=== PATIENT | female | born 1985 | race Hispanic/Latino ===

== ENCOUNTER 2017-12-08 20:21 | Inpatient (IN) | payer BC, OTHER, SELFPAY ==
[~2017-12-08] VITALS: Ht 157.5 cm; Wt 68.2 kg
[2017-12-08 00:30] VITALS: BP 109/61
[2017-12-08] MEDS ORDERED: KETOROLAC TROMETHAMINE 30MG/ML ONE (20:51)
[2017-12-08] MEDS ORDERED: ONDANSETRON HCL 4 MG/2 ML VIAL ONE (20:51)
[2017-12-08] MEDS ORDERED: SODIUM CHLORIDE 0.9% 1000ML 1,000 ML IV ONE ×2 (20:51→23:45)
[2017-12-08] MEDS ORDERED: ONDANSETRON ODT 4 MG TAB ONE (20:52)
[2017-12-08 21:01] LABS: BILIRUBIN,URINE Negative (NEGATIVE); COLOR,URINE Yellow (YELLOW); GLUCOSE, URINE (UA) Negative (NEGATIVE); KETONES,URINE Negative (NEGATIVE); LEUKOCYTE ESTERASE ,URINE Large (NEGATIVE); NITRATE,URINE Positive (NEGATIVE); OCCULT BLOOD,URINE Large (NEGATIVE); PH,URINE 6.5 (5.0-8.0); PROTEIN,URINE 300 (NEGATIVE); UROBILINOGEN,URINE 0.2 mg/dL (0.2-1.0)
[2017-12-08 21:05] LABS: APPEARANCE,URINE CLOUDY (CLEAR)
[2017-12-08 21:07] LABS: HCG,QUAL RESULT NEGATIVE (NEGATIVE)
[2017-12-08 21:14] LABS: CREATININE 0.8 mg/dL (0.5-1.5); POTASSIUM 3.1 mmol/L (3.5-5.1)
[2017-12-08 21:18] LABS: ALBUMIN 3.8 g/dL (3.5-5.0); TOTAL PROTEIN, SERUM 7.9 g/dL (6.0-8.3)
[2017-12-08] MEDS ORDERED: IOPAMIDOL-370 75 ML VIAL IV ONE (21:18)
[2017-12-08] MEDS ORDERED: POTASSIUM BICARB/CIT AC 25 MEQ TABLET.EFF ONE (21:35)
[2017-12-08 21:42] LABS: BACTERIA,URINE Few /HPF (None Seen); RBC,URINE 26-50 /HPF (0-1); WBC,URINE 51-100 /HPF (0-1)
[2017-12-08 21:43] LABS: SQUAMOUS EPITHELIAL CELL,UR Rare /LPF (0-2)
[2017-12-08 22:01] LABS: BASOPHILS % (AUTO) 0.2 % (0.0-5.0); EOSINOPHILS % (AUTO) 0.7 % (0.0-8.0); HEMATOCRIT 35.7 % (36-48); MEAN CORPUSCULAR HEMOGLOBIN 33.9 pg (27.0-33.0); MEAN CORPUSCULAR HGB CONC 35.1 g/dL (32.0-36.0); MEAN CORPUSCULAR VOLUME 96.5 fL (79-99); MONOCYTES % (AUTO) 6.7 % (3.0-13.0); NEUTROPHILS % (AUTO) 78.4 % (40.0-77.0); PLATELET COUNT (AUTO) 210 K/uL (130-400); RED CELL DISTRIBUTION WIDTH 13.3 % (11.0-15.5); WHITE BLOOD COUNT (AUTO) 12.2 K/uL (4.8-10.8)
[2017-12-08] MEDS ORDERED: CEFTRIAXONE SODIUM 1 GM ONE (22:36)
[2017-12-08] MEDS ORDERED: MORPHINE SULFATE 2 MG/ML 1ML SYG IVP PRN (23:45)
[2017-12-08] MEDS ORDERED: MORPHINE SULFATE 2 MG/ML 1ML SYG ONE (23:45)
[2017-12-08] MEDS ORDERED: SODIUM CHLORIDE 0.9% 1000ML 1,000 ML IV SCH (23:45)
[2017-12-08] MEDS ORDERED: FAMOTIDINE/PF 20 MG/2 ML VIAL IV ONE (23:46)
[2017-12-09] VITALS (7 sets, daily range): BP systolic 97–117; BP diastolic 53–70
[2017-12-09] MEDS ORDERED: ONDANSETRON HCL 4 MG/2 ML VIAL IVP PRN (01:30)
[2017-12-09] MEDS: SODIUM CHLORIDE 0.9% 1000ML 1,000 ML IV SCH ×2 (03:37→20:18)
[2017-12-09] MEDS ORDERED: HYDRALAZINE HCL 20 MG/ML VIAL IV PRN (03:45)
[2017-12-09] MEDS ORDERED: POTASSIUM CHLORIDE 20MEQ/100ML 100 ML IV PRN (03:45)
[2017-12-09] MEDS ORDERED: MORPHINE SULFATE 2 MG/ML 1ML SYG IV PRN (03:45)
[2017-12-09] MEDS ORDERED: POTASSIUM CHLORIDE 20 MEQ ERTAB PO PRN (03:45)
[2017-12-09] MEDS ORDERED: POTASSIUM CHLORIDE 10% ELIXIR 20 MEQ/15 ML UDCUP PO PRN (03:45)
[2017-12-09] MEDS ORDERED: LIDOCAINE HCL-MPF 1% 2ML VIAL IVP PRN (03:45)
[2017-12-09] MEDS ORDERED: ONDANSETRON HCL 4 MG/2 ML VIAL IV PRN (03:45)
[2017-12-09] MEDS ORDERED: ACETAMINOPHEN 325 MG TAB PO PRN (03:45)
[2017-12-09] MEDS ORDERED: IBUP-2353 PO (07:25)
[2017-12-09 07:30] LABS: BASOPHILS % (AUTO) 0.3 % (0.0-5.0); EOSINOPHILS % (AUTO) 1.5 % (0.0-8.0); HEMATOCRIT 32.3 % (36-48); LYMPHOCYTES % (AUTO) 16.6 % (21.0-51.0); MEAN CORPUSCULAR HEMOGLOBIN 33.5 pg (27.0-33.0); MEAN CORPUSCULAR HGB CONC 34.6 g/dL (32.0-36.0); MEAN CORPUSCULAR VOLUME 96.7 fL (79-99); MONOCYTES % (AUTO) 9.4 % (3.0-13.0); NEUTROPHILS % (AUTO) 72.2 % (40.0-77.0); PLATELET COUNT (AUTO) 176 K/uL (130-400); RED BLOOD CELL COUNT(AUTO) 3.34 MIL/uL (4.00-5.50); RED CELL DISTRIBUTION WIDTH 13.5 % (11.0-15.5); WHITE BLOOD COUNT (AUTO) 9.2 K/uL (4.8-10.8)
[2017-12-09 08:57] LABS: CREATININE 0.7 mg/dL (0.5-1.5); POTASSIUM 3.8 mmol/L (3.5-5.1)
[2017-12-09] MEDS ORDERED: FAMOTIDINE 20MG TAB 20 MG TAB PO SCH (09:00)
[2017-12-09] MEDS ORDERED: CEFTRIAXONE 1GM/D5W 50ML 50 ML IV SCH (09:00)
[2017-12-09] MEDS ORDERED: FAMOTIDINE/PF 20 MG/2 ML VIAL IV SCH (09:00)
[2017-12-09] MEDS: FAMOTIDINE 20MG TAB 20 MG TAB PO SCH ×2 (09:57→20:17)
[2017-12-09] MEDS: CEFTRIAXONE SODIUM 1 GM IVP SCH (09:57)
[2017-12-10 03:00] VITALS: BP 98/63
[2017-12-10] MEDS: SODIUM CHLORIDE 0.9% 1000ML 1,000 ML IV SCH (05:58)
[2017-12-10 07:00] VITALS: BP 94/48
[2017-12-10] MEDS: FAMOTIDINE 20MG TAB 20 MG TAB PO SCH (09:57)
[2017-12-10] MEDS: CEFTRIAXONE SODIUM 1 GM IVP SCH (09:57)
[2017-12-10 12:14] VITALS: BP 122/68
[2017-12-10] MEDS ORDERED: CEFD300C3 PO (13:20)
== END 2017-12-10 14:40 | disposition home or self-care (01) | DRG 690 ==
LOC: EDH 20:21 → EDHIP 23:25 → OBSVTOIN 23:25 → 3CH 12-09 00:33
PROVIDERS: ADMIT Family Medicine; ATTEND Family Medicine
DX: N39.0 Urinary tract infection, site not specified (principal); D72.829 Elevated white blood cell count, unspecified; E87.6 Hypokalemia
CPT/HCPCS: 36415; 74177; 80048; 80053; 81001; 81025; 85025; 87088; A4218; J0696; J1885; J2405; J3490; J7030; Q9967